=== PATIENT | male | born 1965 | race Caucasian/White ===

== ENCOUNTER 2022-01-03 20:42 | Emergency (ER) | payer BC ==
[~2022-01-03] VITALS: Ht 180.3 cm; Wt 106.4 kg
[~2022-01-03 20:42] MED LIST: NAPROSYN; NORCO 325 MG-7.1 TAB PO
[2022-01-03 20:46] VITALS: TEMP 97
[2022-01-03 21:02] LABS: BASO # 0.1 K/mm3 (0.0-0.2); BASO % 0.8 % (0.0-2.0); EOS # 0.2 K/mm3 (0.0-0.7); EOS % 3.6 % (0.0-4.0); GRAN # 2.8 K/mm3 (1.4-6.5); GRAN % 44.9 % (42.2-75.2); HEMATOCRIT 39.4 % (42.0-52.0); HEMOGLOBIN 13.8 g/dl (13.5-18.0); LYMPH # 2.7 K/mm3 (1.2-3.4); LYMPH % 43.9 % (20.0-51.0); MEAN CELL VOLUME 83 fl (80.0-100.0); MEAN CORPUSCULAR HEMOGLOBIN 29 pg (27-31); MEAN CORPUSCULAR HGB CONC 35 g/dl (33.0-37.0); MEAN PLATELET VOLUME 9.9 fl (7.4-10.4); MONO # 0.4 K/mm3 (0.1-0.6); MONO % 6.5 % (1.7-9.3); PLATELET COUNT 246 K/mm3 (130-400); RED BLOOD COUNT 4.77 M/mm3 (4.20-5.60); REDCELL DISTRIBUTION WIDTH-CV 13.6 % (11.5-14.5)
[2022-01-03 21:20] LABS: ALANINE AMINOTRANSFERASE 18 U/L (0-55); ALBUMIN 3.9 gm/dL (3.5-5.0); ALKALINE PHOSPHATASE 75 U/L (40-150); ANION GAP 13 mmol/L (7-16); AST,SGOT 13 U/L (5-34); BILIRUBIN,TOTAL 0.5 mg/dL (0.2-1.2); BLOOD UREA NITROGEN 20 mg/dL (8-26); CALCIUM 9.7 mg/dL (8.4-10.2); CARBON DIOXIDE 20 mmol/L (22-29); CHLORIDE 106 mmol/L (98-107); GLUCOSE 165 mg/dL (70-99); SODIUM 139 mmol/L (136-145)
[2022-01-03 21:26] LABS: TROPONIN-I < 0.010 ng/mL (0.00-0.033)
[2022-01-03 22:50] VITALS: BP 154/78; PULSE 76
[2022-01-03] MEDS ORDERED: PERCOCET 325 MG1 TA2 PO (23:27)
[2022-01-03] MEDS ORDERED: MOTRIN 800800 MG/TAB PO (23:27)
== END 2022-01-03 22:50 | disposition home or self-care (01) ==
LOC: COL.ER 20:42
PROVIDERS: Personal Emergency Response Attendant
DX: R07.89 Other chest pain (principal); Z87.891 Personal history of nicotine dependence; Z28.310 Unvaccinated for COVID-19
CPT/HCPCS: J2270; J2405; J7030